=== PATIENT | male | born 1945 | race American Indian/Alaskan Native ===

== ENCOUNTER 2016-09-24 11:06 | Emergency (ER) | payer MEDICARE, OTHER ==
[2016-09-24 11:14] VITALS: BP 157/100; PULSE 93; RESP 18; TEMP 98.3; O2SAT 96
[2016-09-24 11:18] VITALS: BMI 27.3
--- NOTE | 2016-09-24 11:45 | C.PDOC ---
History Of Present Illness 70 yr old male with PMHx of chronic pain syndrome and is on chronic opioid therapy, presents to the ER with complaints of body pain and states he ran out of his medicine on Wednesday. Attempted to follow up with another pain management clinic but was not given any narcotics for his pain. Patient is in ER requesting narcotics for chronic pain. [facility] was reviewed which shows patient received oxycodone 30mg on 08/29, 30 day supply and has multiple narcotics restrictions. Patient denies trauma, chest pain, SOB, nausea, vomiting, HI, SI, weakness or numbness. Time Seen by Provider: 09/24/16 11:39 Chief Complaint (Nursing): Medical Clearance History Per: Patient History/Exam Limitations: no limitations Onset/Duration Of Symptoms: Persistent Current Symptoms Are (Timing): Still Present Past Medical History Reviewed: Historical Data, Nursing Documentation, Vital Signs Vital Signs: Last Vital Signs Temp 98.3 F 09/24/16 11:13 Pulse 93 H 09/24/16 11:13 Resp 18 09/24/16 11:13 BP 157/100 H 09/24/16 11:13 Pulse Ox 96 09/24/16 11:53 - Medical History PMH: HTN Surgical History: CABG Family History: States: No Known Family Hx - Social History Hx Alcohol Use: No Hx Substance Use: No - Immunization History Hx Tetanus Toxoid Vaccination: Yes Hx Influenza Vaccination: Yes Hx Pneumococcal Vaccination: Yes Review Of Systems Except As Marked, All Systems Reviewed And Found Negative. Constitutional: Positive for: Other ((+) Body pain ) Cardiovascular: Negative for: Chest Pain Respiratory: Negative for: Shortness of Breath Gastrointestinal: Negative for: Nausea, Vomiting Neurological: Negative for: Weakness, Numbness Psych: Negative for: Suicidal ideation Physical Exam - Physical Exam Appears: Non-toxic, No Acute Distress Skin: Warm, Dry, No Rash Head: Atraumatic, Normacephalic Oral Mucosa: Moist Chest: Symmetrical, No Tenderness Cardiovascular: Rhythm Regular, No Murmur Respiratory: Normal Breath Sounds, No Rales, No Rhonchi, No Stridor, No Wheezing Extremity: Normal ROM, No Swelling Neurological/Psych: Oriented x3, Normal Speech, Normal Motor ED Course And Treatment O2 Sat by Pulse Oximetry: 96 (RA) Pulse Ox Interpretation: Normal Progress Note: Patient is notified he has chronic pain syndrom and will not be treated with narcotics in the ED. Advised to follow up with outpatient clinic. Medical Decision Making Medical Decision Making: pt with chronic pain. pt advised will not be treated with narcotics in er. exam benign. advise outpt fu with pain mangement Disposition - Disposition Disposition: HOME/ ROUTINE Disposition Time: 11:43 Condition: STABLE Additional Instructions: please follo wup with your doctor for refills of narcotics. please return to er with worsening symptoms or concenrs. Prescriptions: Naproxen [Naprosyn] 500 mg PO BID PRN #14 tablet PRN Reason: Pain, Mild (1-3) Instructions: Chronic Pain (ED) - Clinical Impression Clinical Impression: Chronic pain - Scribe Statement The provider has reviewed the documentation as recorded by the Rosalia Ulloa Provider Attestation: All medical record entries made by the Rosalia were at my direction and personally dictated by me. I have reviewed the chart and agree that the record accurately reflects my personal performance of the history, physical exam, medical decision making, and the department course for this patient. I have also personally directed, reviewed, and agree with the discharge instructions and disposition.
== END 2016-09-24 12:13 | disposition home or self-care (01) ==
LOC: C.ER 11:06
DX: G89.4 Chronic pain syndrome (principal)